=== PATIENT | male | born 1965 | race American Indian/Alaskan Native ===

== ENCOUNTER 2019-06-11 13:26 | Outpatient (CLI) | payer OTHER ==
[2019-06-11] MEDS ORDERED: ALBUTEROL 2.5 MG/3 ML NEBU IH ONE (14:10)
== END 2019-06-11 13:27 | disposition home or self-care (01) ==
LOC: PF 13:26
PROVIDERS: ATTEND Internal Medicine
DX: J45.909 Unspecified asthma, uncomplicated (principal)
CPT/HCPCS: 94060; 94640

== ENCOUNTER 2021-08-21 08:41 | Emergency (ER) | payer SELFPAY ==
[2021-08-21 08:47] VITALS: BP 119/82
--- NOTE | 2021-08-21 10:42 | XRay Report ---
CHEST 2 VIEWS INDICATION / CLINICAL INFORMATION: sob. COMPARISON: None available. FINDINGS: SUPPORT DEVICES: None. HEART / MEDIASTINUM: No significant abnormality. LUNGS / PLEURA: No significant pulmonary or pleural abnormality. No pneumothorax. ADDITIONAL FINDINGS: No significant additional findings. IMPRESSION: 1. No acute findings. Signer Name: Bernard Rodriguez MD Signed: 08/21/2021 10:37 AM Workstation Name: [id number]
--- NOTE | 2021-08-21 11:20 | Emergency Department Report ---
ED Shortness of Breath HPI - General Chief Complaint: Chest Pain Stated Complaint: CHEST PAIN AND DIFFCULTY BREATHING Time Seen by Provider: 08/21/21 10:05 Source: patient Mode of arrival: Ambulatory Limitations: No Limitations - History of Present Illness Initial Comments: 56-year-old -Aust[place] male presents to the emergency room complaining of shortness of breath and headache and throat irritation after being exposed to fumes on Tuesday. Patient reports he has a history of asthma and has been using his inhaler and he has PTSD. He has taken nothing for his headache or irritation of his throat. Patient states he think he had a panic attack today. MD Complaint: shortness of breath Onset/Timin -: days(s) Severity: mild Consistency: constant Improves With: nothing Worsens With: nothing Known History Of: asthma - Related Data Previous Rx's Medication Instructions Recorded Last Taken Type Ibuprofen [Motrin 600 MG tab] 600 mg PO Q8H PRN #30 tablet 01/09/20 Unknown Rx predniSONE [Deltasone] 40 mg PO QDAY 5 Days #10 tab 08/21/21 Unknown Rx Allergies Allergy/AdvReac Type Severity Reaction Status Date / Time diphenhydramine Allergy Hives,ITCHI Verified 08/21/21 08:44 [From Benadryl] NG morphine Allergy Hives,ITCHI Verified 08/21/21 08:44 NG ED Review of Systems ROS: Stated complaint: CHEST PAIN AND DIFFCULTY BREATHING Other details as noted in HPI Comment: All other systems reviewed and negative ED Past Medical Hx - Past Medical History Hx Asthma: Yes Additional medical history: PTSD - Surgical History Additional Surgical History: back. left hand surgery for tendon repair. right leg surgery - Social History Smoking Status: Current Every Day Smoker Substance Use Type: None - Medications Home Medications: Home Medications Medication Instructions Recorded Confirmed Last Taken Type Ibuprofen [Motrin 600 MG tab] 600 mg PO Q8H PRN #30 tablet 01/09/20 Unknown Rx predniSONE [Deltasone] 40 mg PO QDAY 5 Days #10 tab 08/21/21 Unknown Rx ED Physical Exam - General Limitations: No Limitations General appearance: alert, in no apparent distress - Head Head exam: Present: atraumatic, normocephalic - Eye Eye exam: Present: normal appearance - ENT ENT exam: Present: mucous membranes moist - Neck Neck exam: Present: normal inspection - Respiratory Respiratory exam: Present: normal lung sounds bilaterally. Absent: respiratory distress - Cardiovascular Cardiovascular Exam: Present: regular rate, normal rhythm. Absent: systolic murmur, diastolic murmur, rubs, gallop - GI/Abdominal GI/Abdominal exam: Present: soft, normal bowel sounds - Rectal Rectal exam: Present: deferred - Extremities Exam Extremities exam: Present: normal inspection - Back Exam Back exam: Present: normal inspection - Neurological Exam Neurological exam: Present: alert, oriented X3 - Psychiatric Psychiatric exam: Present: normal affect, normal mood - Skin Skin exam: Present: warm, dry, intact, normal color. Absent: rash ED Course Vital Signs 08/21/21 08:46 Temperature 98.3 F Pulse Rate 84 Respiratory 20 Rate Blood Pressure 119/82 O2 Sat by Pulse 98 Oximetry ED Medical Decision Making - Radiology Data Radiology results: report reviewed [facility] [address] [place] [address] XRay Report Signed Patient: SVETA OBRIEN JR MR#: [id number] : 1965 Acct:[id number] Age/Sex: 56 / M ADM Date: 08/21/21 Loc: ED Attending Dr: Ordering Physician: МАРИЯ STROUD Date of Service: 08/21/21 Procedure(s): XR chest routine 2V Accession Number(s): [id number] cc: МАРИЯ STROUD Fluoro Time In Minutes: CHEST 2 VIEWS INDICATION / CLINICAL INFORMATION: sob. COMPARISON: None available. FINDINGS: SUPPORT DEVICES: None. HEART / MEDIASTINUM: No significant abnormality. LUNGS / PLEURA: No significant pulmonary or pleural abnormality. No pneumothorax. ADDITIONAL FINDINGS: No significant additional findings. IMPRESSION: 1. No acute findings. Signer Name: Bernard Rodriguez MD Signed: 08/21/2021 10:37 AM Workstation Name: [id number] Transcribed By: TL Dictated By: Bernard Rodriguez MD Electronically Authenticated By: Bernard Rodriguez MD Signed Date/Time: 08/21/21 1037 DD/ 1037 TD/TT: - Medical Decision Making 56-year-old -Aust[place] male presents to the emergency room complaining of shortness of breath and headache and throat irritation after being exposed to fumes on Tuesday. Patient reports he has a history of asthma and has been using his inhaler and he has PTSD. He has taken nothing for his headache or irritation of his throat. Patient states he think he had a panic attack today. Chest x-ray is negative EKG is nonactionable. Discussed with patient I will place him on prednisone he can take Tylenol for headache increase his fluid intake and decrease his exposure to the fumes. Critical care attestation.: If time is entered above; I have spent that time in minutes in the direct care of this critically ill patient, excluding procedure time. ED Disposition Clinical Impression: Acute dyspnea Disposition: 01 HOME / SELF CARE / HOMELESS Is pt being admited?: No Does the pt Need Aspirin: No Condition: Stable Instructions: Shortness of Breath, Adult, [id number] Additional Instructions: Chest x-ray is negative EKG is nonactionable. Please complete the prednisone. Follow-up with your primary care provider. Prescriptions: predniSONE [Deltasone] 40 mg PO QDAY 5 Days #10 tab Referrals: DANY MCCALL MD [Primary Care Provider] - 3-5 Days DAYANARA GANT MD [Staff Physician] - 3-5 Days Time of Disposition: 11:05
--- NOTE | 2021-08-24 10:39 | Electrocardiograph Report ---
[facility] Test Date: 2021-08-21 Test Time: 09:01:39 Pat Name: SVETA OBRIEN Department: Room: Gender: M Fine Artist: MARCELL : 1965 Requested By: PERLA HASSAN Order Number: [id number] Reading MD: Logan Ruiz Measurements Intervals Sargeant Rate: 97 P: 84 IN: 152 QRS: 73 QRSD: 87 T: 104 QT: 348 QTc: 443 Interpretive Statements Very poor quality ECG Sinus rhythm Nonspecific T abnormalities, lateral leads No previous ECG available for comparison Electronically Signed On 08-24-2021 10:38:48 EST by Logan Ruiz
== END 2021-08-21 11:24 | disposition home or self-care (01) ==
LOC: ED 08:41
DX: R06.00 Dyspnea, unspecified (principal); R06.02 Shortness of breath; R51.9 Headache, unspecified; J45.909 Unspecified asthma, uncomplicated; F17.200 Nicotine dependence, unspecified, uncomplicated; Z88.5 Allergy status to narcotic agent; Z88.8 Allergy status to other drugs, medicaments and biological substances; Z79.899 Other long term (current) drug therapy
CPT/HCPCS: 71046; 93005; 99283

== ENCOUNTER 2022-03-26 09:42 | Outpatient (CLI) | payer MEDICAID ==
--- NOTE | 2022-03-26 11:09 | Fluoroscopy Report ---
Barium swallow Indication: K21.9 GERD. Remote history of throat surgery. Patient has been sparing setting difficul ty swallowing over the past few years which has worsened more recently. Technique: Single and double contrast barium technique utilized to evaluate the esophagus. Findings: To begin the exam, swallowing was evaluated in the lateral position under direct fluorosco py. Swallowing was normal. No mucosal irregularity, mass, mass effect, or critical stenosis. There were mild abnormal tertiary contractions as seen with dysmotility. There was also moderate gastroesophageal reflux reaching the mid esophagus. Impression: Moderate gastroesophageal reflux and mild dysmotility. No critical stenosis identified. Fluoroscopic time: 2.1 minutes Number of fluoroscopic images: 22 Signer Name: Kike Boateng MD Signed: 03/26/2022 11:05 AM Workstation Name: [id number]
== END 2022-03-26 09:43 | disposition home or self-care (01) ==
LOC: FLUORO 09:42
PROVIDERS: ATTEND Otolaryngology
DX: K21.9 Gastro-esophageal reflux disease without esophagitis (principal)
CPT/HCPCS: 74220

== ENCOUNTER 2022-05-12 07:10 | Day surgery (SDC) | payer MEDICAID ==
[~2022-05-12 07:10] MED LIST: SODIUM CHLORIDE 0.9% 1000 ML 1,000 ML IV SCH; WATER FOR IRRIG STERILE 1,000 ML BOTTLE ONE; WATER FOR IRRIG STERILE 250 ML BOTTLE IR ONE
[2022-05-12] MEDS ORDERED: propofoL 200 MG/20 ML VIAL IV ONE (08:01)
--- NOTE | 2022-05-12 08:03 | Anesthesia Consultation ---
Anesthesia Consult and Med Hx Date of service: 05/12/22 - Airway Anesthetic Teeth Evaluation: Dentures (upper dentures only ) ROM Head & Neck: Adequate Mental/Hyoid Distance: Adequate - Pulmonary Exam CTA: Yes - Cardiac Exam Cardiac Exam: RRR - Pre-Operative Health Status ASA Pre-Surgery Classification: ASA2 Proposed Anesthetic Plan: MAC - Pulmonary Hx Smoking: Yes (quit 2 years ago) Hx Asthma: Yes (uses inhaler daily) Hx Respiratory Symptoms: No SOB: No Hx Sleep Apnea: No - Cardiovascular System Hx Hypertension: No - Central Nervous System Hx Seizures: No CVA: No - Gastrointestinal Hx Gastroesophageal Reflux Disease: No - Endocrine Hx Renal Disease: No Hx Liver Disease: No Hx Non-Insulin Dependent Diabetes: No Hx Thyroid Disease: No - Other Systems Hx Alcohol Use: No Hx Substance Use: No Hx Cancer: No Hx Obesity: No - Additional Comments Anesthesia Medical History Comments: no hx of anesthesia complications
--- NOTE | 2022-05-12 08:04 | Anesthesia Day of Surgery ---
Anesthesia Day of Surgery - Day of Surgery Patient Examined: Yes Patient H&P Reviewed: Yes Patient is NPO: Yes
[2022-05-12] MEDS ORDERED: LIDOCAINE MPF (2%) 20 MG/1 ML VIAL 5 ML ONE (08:14)
--- NOTE | 2022-05-12 08:26 | Short Stay Summary ---
Short Stay Documentation Date of service: 05/12/22 - History H&P: obtained from office - Allergies and Medications Current Medications: Allergies diphenhydramine [From Benadryl] Allergy (Verified 08/21/21 08:44) Hives,ITCHING morphine Allergy (Verified 08/21/21 08:44) Hives,ITCHING Home Medications Medication Instructions Recorded Confirmed Last Taken Type Ibuprofen [Motrin 600 MG tab] 600 mg PO Q8H PRN #30 tablet 01/09/20 Unknown Rx predniSONE [Deltasone] 40 mg PO QDAY 5 Days #10 tab 08/21/21 Unknown Rx Active Medications Sodium Chloride (Nacl 0.9% 1000 Ml) 1,000 mls @ 50 mls/hr IV DIRECT ANA Stop: 05/12/22 23:00 - Brief post op/procedure progress note Date of procedure: 05/12/22 Pre-op diagnosis: GERD and dysphagia Post-op diagnosis: same Procedure: EGD with biopsy Anesthesia: MAC Findings: submucosal lesion at 38cm. small hiatal hernia, retained foodin stomach Surgeon: HILL GRIGGS Estimated blood loss: none Pathology: list (biopsy of distal esoph lesion at 38cm and biopsy of antrum) Specimen disposition: to lab Condition: stable - Disposition Condition at discharge: Good Disposition: 01 HOME / SELF CARE / HOMELESS Short Stay Discharge Plan Follow up with: ANETA NEAL MD [Primary Care Provider] - 7 Days HILL GRIGGS MD [Staff Physician] - 7 Days
--- NOTE | 2022-05-12 08:28 | Operative Report ---
Operative Report Operative Report: Date: 05/12/2022 Preop diagnosis: Dysphagia, GERD Postop diagnosis: Same with submucosal lesions noted at 38 cm Procedure: Esophagogastroduodenoscopy with biopsy of antrum and LES Surgeon: Dr. Calero Anesthesia: MAC IV sedation Specimen: Biopsy of antrum for H. pylori and biopsy of the LES Estimated blood loss: Less than 5 cc. Procedure: Patient is taken into the endoscopic suite. Timeouts are completed. Under IV sedation and monitored anesthesia care bite block is placed. The flexible upper endoscope was advanced through the hypopharynx, and cricopharyngeus. Cords are visualized and are normal. The scope was advanced through the thoracic esophagus which is normal. The LES is visualized at 40 cm. There is no signs of advanced erosions no tumors. There are some smaller submucosal lesions that are noted and biopsies are obtained at 38 cm. Scope was advanced through the LES and retroflexed. Small hiatal hernia seen. Scope was returned to forward-looking position and advanced through the midportion of the stomach where the antrum and incisura are visualized and are normal. Some retained food is seen in the mid body of the stomach. A biopsy of the antrum was obtained for H. pylori. Scope was advanced through the pylorus and second and third portion of the duodenum are visualized and are normal. The scope was then withdrawn. Biopsy of the LES is obtained. The procedure is ended.
--- NOTE | 2022-05-12 09:25 | Post Anesthesia Evaluation ---
- Post Anesthesia Evaluation Patient Participated: Yes Airway Patent: Yes Stable Respiratory Function: Yes Nausea/Vomiting: No Temp > 96.8F: Yes Pain Manageable: Yes Adequeate Hydration: Yes Anesthesia Complications: No
[2022-05-12 09:40] VITALS: BP 127/89
== END 2022-05-12 09:10 | disposition home or self-care (01) ==
LOC: GIO 07:10
PROVIDERS: ATTEND Surgery
DX: K21.9 Gastro-esophageal reflux disease without esophagitis (principal); K29.50 Unspecified chronic gastritis without bleeding; R13.10 Dysphagia, unspecified; K31.89 Other diseases of stomach and duodenum; K22.89 Other specified disease of esophagus; F41.9 Anxiety disorder, unspecified; Z88.8 Allergy status to other drugs, medicaments and biological substances; Z87.891 Personal history of nicotine dependence; Z79.899 Other long term (current) drug therapy; J45.909 Unspecified asthma, uncomplicated
CPT/HCPCS: 43239; 88305; 88342; J2704; J7030